=== PATIENT | female | born 1975 | race Caucasian/White ===

== ENCOUNTER 2020-03-19 08:16 | Emergency (ER) | payer OTHER ==
[~2020-03-19] VITALS: Ht 167.6 cm; Wt 96.2 kg
[2020-03-19] MEDS ORDERED: ZYRTEC10 M5 PO (08:34)
[2020-03-19] MEDS ORDERED: OMEPRAZOLE 20 M20 M1 PO (08:34)
[2020-03-19] MEDS ORDERED: NORCO 5-325 TA1 EAC2 PO (09:19)
[2020-03-19 09:37] VITALS: BP 146/85
== END 2020-03-19 09:38 | disposition home or self-care (01) ==
LOC: M.ERS 08:16
DX: S92.354A Nondisplaced fracture of fifth metatarsal bone, right foot, initial encounter for closed fracture (principal); Z79.899 Other long term (current) drug therapy; X58.XXXA Exposure to other specified factors, initial encounter; Y93.89 Activity, other specified; Y92.89 Other specified places as the place of occurrence of the external cause; Y99.8 Other external cause status